=== PATIENT | female | born 1960 | race Caucasian/White ===

== ENCOUNTER 2016-10-08 10:59 | Day surgery (SDC) | payer BC ==
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
[~2016-10-08 10:59] MED LIST: Buffered Lidocaine 1% SYRIN* 3 ML/SYR SYRINGE INTRADERM ONE; Ibuprofen TAB* 400 MG PO ONE; Sodium Citrate/Citric Acid* 15 ML UDC PO ONE
[2016-10-08] MEDS ORDERED: Sodium Citrate/Citric Acid* 15 ML UDC ONE (11:16)
[2016-10-08] MEDS ORDERED: ceFAZolin 2 GM PREMIX(*) 2 GM/50 ML BAG IVPB ONE (11:16)
[2016-10-08] MEDS ORDERED: Ibuprofen TAB* 400 MG ONE (11:16)
[2016-10-08] MEDS ORDERED: fentaNYL* 50 MCG/ML 2 ML VIAL (100 MCG VIAL) ONE ×3 (13:27→16:14)
[2016-10-08] MEDS ORDERED: Midazolam* 1 MG/ML 5 ML VIAL (5 MG) ONE (13:27)
[2016-10-08] MEDS ORDERED: DiMENhydriNATE IV* 50 MG/ML VIAL IV PUSH PRN (13:57)
[2016-10-08] MEDS ORDERED: HYDROcodone/ACETAMIN 5-325 MG* 1 TAB PO PRN (13:57)
[2016-10-08] MEDS ORDERED: Bupivacaine 0.5% SDV PF* 30 ML VIAL ONE (14:00)
[2016-10-08] MEDS ORDERED: Chloroprocaine 2%* 20 ML VIAL ONE (15:12)
[2016-10-08] MEDS ORDERED: HYDROcodone/ACETAMIN 5-325 MG* 1 TAB ONE (15:17)
[2016-10-08] MEDS: fentaNYL* 50 MCG/ML 2 ML VIAL (100 MCG VIAL) IV PRN ×4 (15:34→16:21)
[2016-10-08 16:31] VITALS: BP 108/67
--- NOTE | 2016-10-09 13:55 | OP ---
DATE OF OPERATION: 10/08/16 [facility] DATE OF : 64 ATTENDING SURGEON: Glen Escalante MD SENIOR CATEGORY MANAGER: Lakeshia Rouse PA-C. ANESTHESIOLOGIST: Jaswinder Wheat MD ANESTHESIA: Spinal PRE-OP DIAGNOSES: Painful hardware right lateral border of the foot, displaced cuboid bone fragments, and prominent fifth metatarsal base. POST-OP DIAGNOSES: Painful hardware right lateral border of the foot, displaced cuboid bone fragments, and prominent fifth metatarsal base with previously resected peroneus Brevis tendon. OPERATIVE PROCEDURE: Removal of screw lateral mid foot, removal of extra cuboid bone fracture fragments, and repair of the peroneus longus tendon. DESCRIPTION OF PROCEDURE: The patient was taken to the operating room where a longitudinal incision was made through the previous extensile dorsolateral midfoot scar. We dissected down to the fifth metatarsal base and did not see any viable peroneus Brevis tendon at this level. The screw head was easily identified and the screw removed with a small fragment screw coach driver. Because of prominence and previous pain, we shaved the undersurface of the fifth metatarsal with the microsagittal saw. We then were approaching the lateral and plantar border of the cuboid because of the peroneus longus blocking our approach, I released it at this point and to be repaired later. This allowed me with a Alvarado elevator to go deep to the cuboid and isolate the large osteophyte and displaced fracture fragments. These were removed with the 0.5 inch curved osteotome. At the end of this release, I could feel no remaining bone fragments in the arch. We then repaired the peroneus longus tendon with a 2-0 Vicryl suture and irrigated the lateral wound thoroughly. We closed the subcu tissue with 2-0 Vicryl and jaimee for the skin. A compression dressing and plaster splint applied. [id number]/[facility] #: [id number] MTDD
== END 2016-10-08 16:50 | disposition home or self-care (01) ==
LOC: OR 10:59
PROVIDERS: ATTEND Orthopaedic Surgery
DX: T84.84XA Pain due to internal orthopedic prosthetic devices, implants and grafts, initial encounter (principal); S92.211 Displaced fracture of cuboid bone of right foot; X58.XXXD Exposure to other specified factors, subsequent encounter
CPT/HCPCS: 36415; 86803; 88300; 88304; 88311; A9270-GY; J0690; J2250; J2400; J3010

== ENCOUNTER 2016-10-09 04:01 | Emergency (ER) | payer BC ==
[2016-10-09] MEDS ORDERED: Morphine INJ* 4 MG/ML 1 ML SYRINGE ONE (04:39)
[2016-10-09] MEDS ORDERED: Morphine INJ* 4 MG/ML 1 ML SYRINGE SUBCUT ONE ×2 (05:59→06:49)
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
[2016-10-09 06:53] VITALS: BP 96/51
== END 2016-10-09 06:25 | disposition home or self-care (01) ==
LOC: ED 04:01
DX: G89.18 Other acute postprocedural pain (principal); M79.604 Pain in right leg; Z88.2 Allergy status to sulfonamides
CPT/HCPCS: 96372; 99282; J2270